=== PATIENT | male | born 1965 ===

== ENCOUNTER 2021-05-17 06:09 | Emergency (ER) | payer MEDICARE, OTHER ==
--- NOTE | 2021-05-17 06:59 | EDM.PDOC ---
ED HPI GENERAL MEDICAL PROBLEM - General Chief Complaint: Gastrointestinal Problem Stated Complaint: BOWEL OBSTRUCTION Time Seen by Provider: 05/17/21 06:30 Source of Information: Reports: Patient, RN Notes Reviewed History Limitations: Reports: No Limitations - History of Present Illness INITIAL COMMENTS - FREE TEXT/NARRATIVE: This patient presents to the emergency department for evaluation of abdominal pain. He states he has not had any urine output since 3 PM yesterday afternoon which is about 18 hours ago. He feels the urge to urinate but cannot start the stream or pass urine. He also has not had a bowel movement in the past 4 days. He states his last bowel movement was Friday. He denies nausea or vomiting with this. He has had no liquid stool passing around. He has not had a fever, cough, chest pain, other concerns or complaints. He is visiting here from [facility]. Abdomen Pain Score (Numeric/FACES): 10 - Related Data Allergies Allergy/AdvReac Type Severity Reaction Status Date / Time iodine Allergy Severe Seizure Verified 05/17/21 06:44 Home Meds: Home Meds Aspirin 81 mg PO DAILY 05/17/21 [History] carBAMazepine [TEGretol] 100 mg PO BID 05/17/21 [History] Past Medical History Cardiovascular History: Reports: Hypertension Neurological History: Reports: Other (See Below) Other Neuro History: epilepsy Social & Family History - Tobacco Use Tobacco Use Status *Q: Current Some Day Tobacco User Years of Tobacco use: 37 Packs/Tins Daily: 1 ED ROS GENERAL - Review of Systems Review Of Systems: Comprehensive ROS is negative, except as noted in HPI. ED EXAM, RENAL/ - Physical Exam Exam: See Below Exam Limited By: No Limitations General Appearance: Alert, Moderate Distress Eye Exam: Bilateral Eye: EOMI, PERRL Ears: Normal External Exam Nose: Normal Inspection Head: Atraumatic, Normocephalic Neck: Normal Inspection, Full Range of Motion Respiratory/Chest: No Respiratory Distress, Lungs Clear, Normal Breath Sounds, No Accessory Muscle Use Cardiovascular: Regular Rate, Rhythm GI/Abdominal: Normal Bowel Sounds, Distended, Other Neurological: Alert, Oriented Psychiatric: Normal Affect, Tearful Skin Exam: Warm, Dry, Intact Course - Vital Signs Last Recorded V/S: Last Vital Signs Temp 37.2 C 05/17/21 06:43 Pulse 78 05/17/21 06:43 Resp 16 05/17/21 06:43 BP 157/89 H 05/17/21 06:43 Pulse Ox 96 05/17/21 06:43 - Orders/Labs/Meds Labs: Laboratory Tests 05/17/21 Range/Units 06:55 Urine Color Yellow Urine Appearance Clear (CLEAR) Urine pH 6.0 (5.0-8.0) Ur Specific [place] 1.025 (1.003-1.030) Urine Protein Negative (NEGATIVE) mg/dL Urine Glucose (UA) Negative (NEGATIVE) mg/dL Urine Ketones Negative (NEGATIVE) mg/dL Urine Occult Blood Negative (NEGATIVE) Urine Nitrite Negative (NEGATIVE) Urine Bilirubin Negative (NEGATIVE) Urine Urobilinogen 0.2 (0.2-1.0) E.U./dL Ur Leukocyte Esterase Negative (NEGATIVE) Meds: Medications Discontinued Medications Generic Name Dose Route Start Last Admin Trade Name Freq PRN Reason Stop Dose Admin Sodium Biphosphate/Sodium Phosphate 133 ml 05/17/21 07:50 05/17/21 07:55 Sodium Phosphate,Monobasic/Sodium Phosphate,Dibasic Enema 133 Ml Bottle RECTAL 05/17/21 07:51 1 box ONETIME ONE Administration Departure - Departure Time of Disposition: 08:30 Disposition: Home, Self-Care 01 Condition: Good Clinical Impression: Urinary retention, Constipation - Discharge Information Instructions: Indwelling Urinary Catheter Care, Adult, [id number], Acute Urinary Retention, Male Referrals: PCP,None [Primary Care Provider] - Forms: ED Department Discharge Care Plan Goals: Follow up with your primary care provider Sepsis Event Note (ED) - Evaluation Sepsis Screening Result: No Definite Risk - Focused Exam Vital Signs: Vital Signs Temp Pulse Resp BP Pulse Ox 05/17/21 06:43 37.2 C 78 16 157/89 H 96
[2021-05-17] MEDS ORDERED: Sodium Phosphate,Monobasic/Sodium Phosphate,Dibasic Enema 133 ML Bottle RECTAL ONE (07:50)
--- NOTE | 2021-05-17 10:37 | CT ---
Date of Service: 05/17/21 Clinical Data: abdominal pain UNENHANCED ABDOMEN AND PELVIC CT: Multislice acquisition through the abdomen and pelvis without IV or oral contrast was performed. No priors. There are emphysematous changes in both lower lungs. There are atelectatic changes in dependent portion of both lung bases. The heart size is normal. The liver is normal size with homogeneous attenuation. No focal hepatic lesions. The gallbladder appears normal. No calcified gallstones. No pericholecystic fluid. The spleen appears normal. The pancreas appears normal. The right and left adrenals appear normal. The right and left kidneys appear normal. No nephrocalcinosis or nephrolithiasis. No hydronephrosis or hydroureter. There is a Meza catheter noted within the bladder. The bladder is decompressed. Prostate is enlarged. No evidence of appendicitis. There is a moderate amount of stool noted within the right colon. There are scattered air-fluid levels in the small bowel. No distended loops of small bowel. No transition point. Enteritis should be considered. There is a small amount of free fluid noted within the pelvis. No free air. No adenopathy. No aortic aneurysm. There is degenerative disk disease at multiple levels in the lower thoracic and lumbar spine. No other significant findings. [id number] [facility]
== END 2021-05-17 08:45 | disposition home or self-care (01) ==
LOC: LB.ED 06:09
DX: K59.00 Constipation, unspecified (principal); R33.9 Retention of urine, unspecified; I10 Essential (primary) hypertension; Z72.0 Tobacco use; Z91.041 Radiographic dye allergy status; Z79.82 Long term (current) use of aspirin
CPT/HCPCS: 51702; 74176; 81003; 99284; A9270